=== PATIENT | male | born 1990 | race Caucasian/White ===

== ENCOUNTER 2017-12-11 01:31 | Emergency (ER) | payer MEDICAID, SELFPAY ==
[2017-12-11 01:34] VITALS: BP 137/95; PULSE 82; RESP 16; TEMP 36.4; O2SAT 100; BMI 21.6
--- NOTE | 2017-12-11 01:48 | ED.DCSUM_ITS ---
- ER Visit Summary Date of Service: 12/11/17 Chief Complaint: Jaw swelling History of Present Illness: The patient is a 27 M states for the past couple weeks she has had pain in the left his mandible. He notes some dental decay and dental pain. Now he notes swelling at the angle on the left. No fevers. No trismus. He has no dentist. Physical Examination: Afebrile vital signs are stable Gen: Well-nourished well-developed Head: Normocephalic atraumatic Eyes: Perrl EOMI ENT: TMs clear no rhinorrhea moist mucous membranes focal decay of the left inferior third molar. There is some mild gum swelling but nothing drainable. At the angle of the left mandible there is some swelling without erythema. No trismus. Floor the mouth is soft. Handling secretions normally. Neck: Supple no lymphadenopathy no JVD nontender CVS: Regular rate rhythm no murmurs normal S1-S2 Respiratory: No distress clear to auscultation bilaterally chest nontender Abdomen: Soft nontender nondistended normal bowel sounds no masses Back: Nontender Extremity: Nontender no edema Skin: Normal color no rash Neuro: alert orientated ?3 CN II-XII intact normal strength sensation reflexes gait cerebellar Psych: Normal affect normal mood Emergency Department Course and Treatment: She will be treated with clindamycin and ibuprofen. He is to follow-up with dentistry as soon as possible. Return if worsening. Impression: Left inferior third molar periapical abscess This note was generated with [employer] dictation software. It may contain incorrect words, spelling, and punctuation that were not noted in review of the chart prior to signing ED Disposition - Plan for ED Patient: Disposition: Home or Assisted Living Chief Complaint: Dental Instructions: ED Abscess Dental Prescriptions: Ibuprofen [Motrin] 800 mg PO TID PRN PRN #20 tab PRN Reason: Pain Clindamycin [Cleocin] 300 mg PO 4X/DAY #80 cap Referrals: Care Physician,No Primary [Primary Care Provider] - Shantell Bocanegra [NON-STAFF] - (Call to arrange dental follow-up) Additional Instructions: Follow-up with dentist of choice or the [facility] clinic if needed.
[2017-12-11] MEDS: Clindamycin HCl 150 MG Capsule 300 MG PO (01:58)
[2017-12-11] MEDS: Ibuprofen 400 MG Tablet 800 MG PO (01:59)
== END 2017-12-11 02:03 | disposition home or self-care (01) ==
PROVIDERS: Emergency Provider Emergency Medicine
DX: K04.7 Periapical abscess without sinus (principal)
CPT/HCPCS: 99283